=== PATIENT | male | born 1985 | race African-American/Black ===

== ENCOUNTER 2017-02-03 22:07 | Emergency (ER) | payer SELFPAY ==
[2017-02-03] MEDS ORDERED: Sodium Chloride 0.9% 10 ML Syringe FLUSH PRN (22:27)
[2017-02-03] MEDS ORDERED: Sodium Chloride 0.9% 1,000 ML IV ONE (22:27)
[2017-02-03] MEDS ORDERED: Famotidine 20 MG/2 ML SDV IVPUSH ONE (22:27)
[2017-02-03] MEDS ORDERED: Sodium Chloride 0.9% 2.5 ML Syringe FLUSH PRN (22:27)
[2017-02-03] MEDS ORDERED: Ondansetron 4 MG/2 ML SDV IVPUSH ONE (22:27)
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
[2017-02-03 23:12] LABS: CHLORIDE,CL 106 mmol/L (98-110); SODIUM,NA 141 mmol/L (136-146)
[2017-02-04 01:09] VITALS: BP 110/61
== END 2017-02-04 01:14 | disposition home or self-care (01) ==
LOC: MW.ED 22:07
DX: F10.120 Alcohol abuse with intoxication, uncomplicated (principal)
CPT/HCPCS: 36415; 80053; 82150; 83690; 85025; 96361; 96374; 96375; 99285; G0480; J2405; J7040; 99284

== ENCOUNTER 2017-04-19 14:56 | Emergency (ER) | payer SELFPAY ==
[2017-04-19] MEDS ORDERED: Sodium Chloride 0.9% 2.5 ML Syringe FLUSH PRN (14:59)
[2017-04-19] MEDS ORDERED: Sodium Chloride 0.9% 10 ML Syringe FLUSH PRN (14:59)
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
[2017-04-19 16:43] LABS: CHLORIDE,CL 105 mmol/L (98-110); SODIUM,NA 142 mmol/L (136-146)
[2017-04-19 17:14] VITALS: BP 140/90
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
--- NOTE | 2017-04-22 11:21 | CR ---
EXAM DATE: 04/19/17 PATIENT'S AGE: 31 Patient: NARESH HARRINGTON Facility: [place], [place] Site . Site : 1985 Study: XRay Spine Lumbar [id number]/1/2017 4:06:15 PM Ordering Physician: Tee Serrano Final Report: INDICATION: pain TECHNIQUE: Lumbar spine 3 view COMPARISON: None FINDINGS: Bones: No fractures or significant bone lesions. Joints: Disc spaces and facets are unremarkable. Soft tissues: Moderate amount of stool. IMPRESSION: No acute abnormality of the lumbar spine. Moderate amount of stool. Dictated by Francisco Adorno MD @ 04/19/2017 4:40:48 PM Dictated by: Francisco Adorno MD @ 04/19/2017 16:40:56 (Electronic Signature) Report Signed by Proxy. [facility]
== END 2017-04-19 17:11 | disposition home or self-care (01) ==
LOC: MW.ED 14:56
DX: S80.12XA Contusion of left lower leg, initial encounter (principal); V09.9XXA Pedestrian injured in unspecified transport accident, initial encounter
CPT/HCPCS: 36415; 72100; 72170; 73590; 73600; 80053; 85025; 99284; G0390; 99283